=== PATIENT | female | born 1935 | race Caucasian/White ===

== ENCOUNTER → 2018-10-18 | Outpatient (REF) | payer MEDICARE, OTHER ==
[2018-10-18 21:14] LABS: PERCENT SATURATION 27.4 % (13.2-45.0)
== END ==
LOC: M LAB REF 17:08
PROVIDERS: ATTEND Internal Medicine Nephrology
DX: D50.9 Iron deficiency anemia, unspecified (principal)

== ENCOUNTER 2019-06-13 01:17 | Inpatient (IN) | payer MEDICARE, OTHER ==
[~2019-06-13] VITALS: Ht 154.9 cm; Wt 65.8 kg
[2019-06-13 03:05] VITALS: BP 142/83
[2019-06-13 04:00] VITALS: BP 145/80
--- NOTE | 2019-06-13 04:12 | HPEPDOC ---
[facility] Medical History & Physical Date of Admission Jun 13, 2019 Date of Service: Jun 13, 2019 Attending Physician: ILYA ANTONIO MD History and Physical TIME OF SERVICE: 405 AM CHIEF COMPLAINT: Abdominal pain HISTORY OF PRESENT ILLNESS: This is a 84 old female who initially presented to [facility] with complaints of mid-right lateral abdominal pain that began yesterday afternoon after she ate lunch. She was unable to rate the pain on a scale of 1-10, but reported that it was severe. Associated symptoms included nausea and vomiting. She denied having fevers, and denied having chills. He last bowel movement was on Wednesday. She last passed gas yesterday. At [place] WBC #1.7, hemoglobin 11.6, platelets 275, sodium 136, potassium 5.2, chloride 101, CO2 16, BUN 50, creatinine 1.7, glucose 189, lipase 81, and BNP 1236. The UA was unremarkable. The CT of the abdomen showed partial small bowel traction likely due to adhesions. She was started on IV fluids and an NG tube to suction was placed; she was transferred here for surgical evaluation. REVIEW OF SYSTEMS: 12 point review of systems negative except as listed in HPI PAST MEDICAL/ SURGICAL HISTORY: Chronic hypertension. Diverticulosis. CKD Hypothyroidism Status post hernia repair. Status post tubal ligation Status post surgery for brain aneurysm SOCIAL HISTORY: Nonsmoker FAMILY HISTORY: Family history of lung problems, diabetes, or CAD ALLERGIES: Please see below. HOME MEDICATIONS: Please see below. PHYSICAL EXAMINATION: VITAL SIGNS: Please see below. GENERAL APPEARANCE: Well-nourished, well-developed, not in apparent distress HEENT: Cephalic, atraumatic. Mucous members moist and pink. NG to suction and placed, bile colored fluid is draining from the 2 CARDIOVASCULAR: Regular rate and rhythm. No murmurs, rubs or gallops LUNGS: Clear to auscultation bilaterally on room air ABDOMEN: Bowel sounds hypoactive. Abdomen is still distended, soft and slightly tender with palpation INTEGUMENT: No generalized pallor NEUROLOGICAL: Cranial nerves II-12 are grossly intact. Speech is not dysarthric PSYCHIATRIC: Alert and oriented, able to understand and follow commands LABORATORY DATA: see HPI IMAGING: see HPI MICROBIOLOGY: UA is remarkable ASSESSMENT: Ms. Velez is an 84 year old female the past. No history of hypertension, CKD, and multiple abdominal surgeries, who will be admitted for management of partial small bowel obstruction. PLAN: 1.Partial small bowel obstruction Diagnosis based on complains of abdominal pain and CT scan findings Plan: Admit to general medical floor/continue with NG to intermittent suction w clamping to take meds/nothing by mouth except for sips of water and meds /IV fluids/follow-up serial abdominal sounds KUB/follow-up with Dr. Haynes 2. Chronic Hypertension. Plan: Continue home meds 3. Hypogonadism. Plan: Continue home meds 4 Depression? Plan: Continue home meds DVT prophylaxis with SCDs Disposition pending clinical course Home Medications Scheduled Calcitriol (Calcitriol) 0.25 Mcg Capsule, 0.25 MCG PO DAILY Diltiazem HCl (Cartia Xt) 120 Mg Cap.er.24h, 120 MG PO DAILY Ezetimibe (Ezetimibe) 10 Mg Tablet, 10 MG PO DAILY Ferrous Sulfate (Ferrous Sulfate) 325 Mg Tablet, 325 MG PO DAILY Folic Acid (Folic Acid) 1 Mg Tablet, 1 MG PO DAILY Gemfibrozil (Gemfibrozil) 600 Mg Tablet, 600 MG PO BID Levothyroxine Sodium (Synthroid) 50 Mcg Tablet, 50 MCG PO DAILY Losartan Potassium (Losartan Potassium) 25 Mg Tablet, 25 MG PO DAILY Melatonin (Melatonin) 5 Mg Tablet, 5 MG PO QHS Mirtazapine (Remeron) 15 Mg Tablet, 7.5 MG PO QHS Nystatin (Nystatin Powder) 15 Gm Powder, 1 DOSE TOP DAILY UNDER BREASTS AND STOMACH FOLDS Polyvinyl Alcohol (Akwa Tears) 15 Ml Drops, 2 DROP OU DAILY Potassium Chloride (Potassium Chloride) 10 Meq Capsule.er, 10 MEQ PO DAILY Sertraline HCl (Sertraline HCl) 50 Mg Tablet, 50 MG PO DAILY Vit A/Vit C/Vit E/Zinc/Copper (Icaps Areds Formula Dr Tablet) 1 Each Tablet.dr, 1 TAB PO DAILY Allergies Coded Allergies: acetaminophen (Verified Allergy, Intermediate, rash, 06/13/19) diphenhydramine (Verified Allergy, Intermediate, rash, 06/13/19) metronidazole (Verified Allergy, Intermediate, rash, 06/13/19) NSAIDS (Non-Steroidal Anti-Inflamma (Verified Allergy, Unknown, 06/13/19) Penicillins (Verified Allergy, Unknown, 06/13/19) erythromycin base (Verified Allergy, Unknown, 06/13/19) A-FIB/CHADSVASC A-FIB History Current/History of A-Fib/PAF?: No Current PO Anticoag Therapy: No ILYA ANTONIO MD Jun 13, 2019 04:12
[2019-06-13] MEDS: NS 1,000 ML IV SCH ×2 (04:15→05:00)
[2019-06-13] MEDS ORDERED: NYST1POW9 TOP (05:32)
[2019-06-13] MEDS ORDERED: MELA1TAB9 PO (05:32)
[2019-06-13] MEDS ORDERED: AKWASOL OU (05:32)
[2019-06-13] MEDS ORDERED: REME15TA PO (05:32)
[2019-06-13] MEDS ORDERED: FERR1TAB8 PO (05:32)
[2019-06-13] MEDS ORDERED: EZET10TA21 PO (05:32)
[2019-06-13] MEDS ORDERED: SERT-155 PO (05:32)
[2019-06-13] MEDS ORDERED: SYNT50TA PO (05:32)
[2019-06-13] MEDS ORDERED: CART120C PO (05:32)
[2019-06-13] MEDS ORDERED: LOSA25TA14 PO (05:32)
[2019-06-13] MEDS ORDERED: CALC1CAP31 PO (05:32)
[2019-06-13] MEDS ORDERED: ICAPTAB PO (05:32)
[2019-06-13] MEDS ORDERED: POTA10CA32 PO (05:32)
[2019-06-13] MEDS ORDERED: GEMF600T5 PO (05:32)
[2019-06-13] MEDS ORDERED: FOLI1TAB11 PO (05:32)
[2019-06-13] MEDS: LEVOTHYROXINE 50MCG TABLET (0.05MG) PO SCH (06:29)
[2019-06-13 07:04] LABS: HEMATOCRIT 32.4 % (36.0-47.0); HEMOGLOBIN 10.6 g/dl (12.0-15.5); MEAN CORPUSCULAR HEMOGLOBIN 30.7 pg (27.0-33.0); MEAN CORPUSCULAR HGB CONC 32.7 g/dl (32.0-36.5); MEAN CORPUSCULAR VOLUME 93.9 fl (80.0-96.0); PLATELET COUNT, AUTOMATED 230 10^3/uL (150-450); RED BLOOD COUNT 3.45 10^6/uL (4.00-5.40); WHITE BLOOD COUNT 6.9 10^3/uL (4.0-10.0)
[2019-06-13 07:15] LABS: CALCIUM LEVEL 7.8 MG/DL (8.8-10.2); CREATININE FOR GFR 1.76 MG/DL (0.55-1.30); GLOMERULAR FILTRATION RATE 29.1 (>32); POTASSIUM SERUM 5.1 MEQ/L (3.5-5.1)
--- NOTE | 2019-06-13 08:26 | REP ---
KUB: Single view. History: Follow up partial small bowel obstruction. No comparison imaging. Findings: A nasogastric tube is seen in the gastric fundus. The bowel gas pattern is unremarkable with air and stool in a nondistended colon. No large or small bowel dilation is seen. Psoas margins and flank stripes are intact. There is a mild levoconvex scoliotic curve of the lumbar spine. Impression: Unremarkable bowel gas pattern. Nasogastric tube in the upper stomach. Electronically Signed by Neville Sams MD 06/13/2019 08:17 A
[2019-06-13] MEDS: POTASSIUM CHLORIDE 10 MEQ SR TABLET PO SCH (09:00)
[2019-06-13] MEDS: NYSTATIN 100,000 UNITS/GM TOPICAL PWD 15 GM TOP SCH (09:00)
[2019-06-13] MEDS: EZETIMIBE 10 MG TAB (ZETIA) PO SCH (09:28)
[2019-06-13] MEDS: CALCITRIOL 0.25 MCG CAP (S0169) PO SCH (09:28)
[2019-06-13] MEDS: SERTRALINE HCL 50 MG TAB PO SCH (09:28)
[2019-06-13] MEDS: GEMFIBROZIL 600 MG TAB PO SCH ×2 (09:28→20:34)
[2019-06-13] MEDS: POLYVINYL ALCOHOL OPHTH SOLN 15 ML(LIQUITEARS) OU SCH (09:29)
[2019-06-13] MEDS: FOLIC ACID 1 MG TAB PO SCH (09:29)
[2019-06-13] MEDS: LOSARTAN 25 MG TAB PO SCH (09:29)
[2019-06-13] MEDS: LR 1,000 ML IV SCH (10:37)
[2019-06-13 14:00] VITALS: BP 146/73
--- NOTE | 2019-06-13 19:40 | IPNPDOC ---
Date Seen The patient was seen on 06/13/19. Progress Note SUBJECTIVE: Cristy was seen and examined this morning while lying upright in bed. She states that she is feeling "pretty good" this morning. Her left nose is a little bit sore and this is the nose with the NG tube. Her belly pain is all but resolved at this time. She has not had any bowel movement since admission. She denies any nausea or vomiting. There is approximately 550 mL of dark green fluid that has been suctioned via the NG tube. She remains npo and reports she was able to get some sleep overnight. She denies feeling feverish, chills, night sweats, headache, lightheadedness, dizziness, dry mouth, chest pain, chest pressure, palpitations, shortness of breath, cough, paresthesias, or lower extremity swelling. OBJECTIVE PHYSICAL EXAMINATION: VITAL SIGNS: Please see below. GENERAL: Cristy is an elderly appearing woman. She is awake, alert and oriented 3. She responds to questions and commands appropriately. Her baseline demeanor seems somewhat subdued today, but this is hospitalist day team's initial evaluation of her son. This may be her baseline. She does not appear to be in any acute distress at this time. HEENT: Normocephalic, atraumatic. Anicteric sclera. Noninjected conjunctiva. No palpable cervical or supraclavicular lymphadenopathy. Trachea is midline. Neck is supple. Nasogastric tube in place through left nares. CARDIOVASCULAR: Regular rate, regular rhythm, S1, S2 normal. No murmurs, rubs, or gallops appreciated. No visible JVD. 2+ radial and posterior tibial pulses palpated bilaterally RESPIRATORY: Mildly diminished tidal volume. No wheezes or rhonchi appreciated on auscultation. Symmetric chest expansion. No retractions or accessory muscle v isualized on respiration. No cough elicited during exam. ABDOMINAL: Vertical midline abdominal scar superior to umbilicus. Right lower quadrant tenderness to palpation. Hypoactive bowel sounds. Left lower quadrant fullness to palpation. No dullness to percussion throughout abdomen. No hepatomegaly appreciated on palpation. MUSCULOSKELETAL: 5 out of 5 muscle strength testing upper extremity and lower extremity bilaterally. EXTREMITIES: No clubbing or cyanosis. No lower extremity edema. NEUROLOGICAL: Sensation to light touch intact upper extremity and lower showing bilaterally. Patient is awake, alert and oriented 3. She responds appropriate to questions commands. PSYCHOLOGICAL: Subdued mood, appropriate affect. LABORATORY DATA, IMAGING STUDIES, MICROBIOLOGY: Please see below. Abdominal flat plate KUB, 06/13- showed an unremarkable bowel gas pattern with air and stool in the nondistended colon. No large or small bowel dilation is seen. Nasogastric tube in the upper stomach. ASSESSMENT & PLAN: This is an 84-year-old female who presented to the [facility] yesterday from [facility] with a chief complaint of right-sided abdominal pain that was "severe." Pain came on the afternoon of 06/11 after patient ate lunch. She had associated nausea and dry heaves with no fever or c hills. Her last bowel movement was 06/09. The last time she had flatus was 06/12. CT imaging showed a partial small bowel obstruction likely secondary to adhesions from previous abdominal surgical procedures. Patient was started on IV fluids, given NG tube suction for decompression and follow-up serial KUB imaging was ordered. General surgery was contacted and will be evaluating patient. #Partial small bowel obstruction on CT imaging -SBO likely secondary to adhesions from previous abdominal surgeries. -KUB flat plate imaging this morning showed unremarkable bowel gas pattern with stool and air in a nondistended colon. There was no bowel dilation visualized. -Patient is also being followed by general surgery who is aware updates and patient's current status. -NG tube drained 550 mL's of dark green fluid through this morning. -Patient reports her bowel pain is all but resolved from yesterday. -Patient's IV fluid was switched from normal saline to LR's due to hyperchloremia. #Hyperchloremia -Chloride value this morning was 113 -IV fluid had been normal saline, but this was switched to lactated Ringer's. Due to elevated chloride level -Continue to monitor on repeat metabolic profiles #Chronic kidney disease, stage IIIB -Patient's IV fluids switched from normal saline to lactated Ringer's today due to hyperchloremia. -Patient remains npo -GFR measured at 29% this morning -Creatinine was 1.76 this morning. Unsure of patient's baseline creatinine as this was only lifetime Cr level found in medical record. -Continue to monitor and repeat labs. #Essential hypertension -Continue with patient's home losartan and diltiazem -Continue to monitor vitals #Normocytic anemia -Hemoglobin was 10.6 with MCV of 93.9. -Possibly secondary to chronic kidney disease/anemia of chronic disease. -Continue with patient's home folic acid dosing -Continue to monitor and repeat CBC measurements #History of hypothyroidism -Continue with patient's levothyroxine #History of hyperlipidemia Continue with home ezetimibe and gemfibrozil medication #History of depression/anxiety -Continue with patient's home mirtazapine and sertraline medication #History of diverticulosis #History of multiple abdominal surgeries #History of surgery for brain aneurysm DVT prophylaxis: TEDs and sequentials ordered. DISPOSITION: Patient's partial small bowel obstruction appears to be improved on morning KUB imaging. NG tube is still suctioning all fluid. Hospitalist team is working in conjunction with general surgery, who is aware patient and current developments in her status. We will reassess patient status tomorrow as to resolution of sbo. I saw and evaluated the patient. I agree with the findings and plan of care as documented in the above note VS, I&O, 24H, Fishbone Vital Signs/I&O Vital Signs Date Time Temp Pulse Resp B/P (MAP) Pulse Ox O2 Delivery O2 Flow Rate FiO2 06/13/19 14:00 99.2 66 16 146/73 (97) 96 I&O- Last 24 Hours up to 6 AM 06/13/19 06:00 Intake Total 0 ml Output Total 450 ml Balance -450 ml Laboratory Data 24H LABS Laboratory Tests 2 06/13/19 06:28: Nucleated Red Blood Cells % (auto) 0.0, Anion Gap 10, Glomerular Filtration Rate 29.1L, Blood Urea Nitrogen 46H, Creatinine 1.76H, Sodium Level 136, Potassium Level 5.1, Chloride Level 113H, Carbon Dioxide Level 13L, Calcium Level 7.8L CBC/BMP Laboratory Tests 06/13/19 06:28 Red Blood Count 3.45 L, Mean Corpuscular Volume 93.9, Mean Corpuscular Hemoglobin 30.7, Mean Corpuscular Hemoglobin Concent 32.7, Red Cell Distribution Width 13.1, Calcium Level 7.8 L [facility] PGY-1 Jun 13, 2019 19:40 ELIZABETH CABA MD Jun 15, 2019 10:52
[2019-06-13 20:34] VITALS: BP 189/95
[2019-06-13] MEDS: MIRTAZAPINE 7.5MG PER 1/2 TABLET PO SCH (20:34)
--- NOTE | 2019-06-13 23:31 | CR ---
DATE OF CONSULTATION: 06/13/2019 REASON FOR CONSULTATION: Possible bowel obstruction. HISTORY OF PRESENT ILLNESS: The patient is a pleasant 84-year-old woman who was admitted early on the morning of 06/13/2019 on transfer from [facility] with some complaints of abdominal pain. The patient had reported that following lunch on 06/12/2019, she developed some discomfort in the mid and lower abdomen. This was not particularly well localized. The discomfort rapidly became quite severe. She had some nausea and some vomiting as well. She denied any diarrhea, but had reported a tendency toward constipation recently. She had no fevers or chills. She presented at [facility] for evaluation. She had some laboratory studies obtained and a CT scan was done, which apparently was interpreted as showing a partial small bowel obstruction. Reportedly, [facility] had no available beds, and she was transferred to [facility] for treatment. A nasogastric tube was placed, and she has been kept on hydration. I am now asked to evaluate the patient regarding her possible bowel obstruction. ALLERGIES: Allergies are reported to ACETAMINOPHEN, DIPHENHYDRAMINE, METRONIDAZOLE, NONSTEROIDAL ANTI-INFLAMMATORY MEDICATIONS, PENICILLIN and ERYTHROMYCIN. HOME MEDICATIONS: Home medications are listed as calcitriol, diltiazem, ezetimide, ferrous sulfate, folic acid, gemfibrizil, levothyroxine, losartan, melatonin, mirtazapine, Nystatin topically, artificial tears, potassium chloride, sertraline and vitamin capsules. SURGICAL HISTORY: Significant for a tubal ligation and repair of a hernia. She has an upper midline abdominal scar, but is unsure what sort of surgery she had done there. MEDICAL HISTORY: Significant for hypertension. She has a history of chronic kidney disease. She has hypothyroidism. She has a history of diverticulosis. SOCIAL HISTORY: Patient is a nonsmoker. FAMILY HISTORY: Not particularly helpful in this patient. REVIEW OF SYSTEMS: Revealed no reported chest pain, shortness of breath, melena, hematochezia, hepatitis, pancreatitis or yellow jaundice. She has had no history of deep vein thrombosis (DVT) or pulmonary embolus. PHYSICAL EXAMINATION: The patient appears alert and seems oriented globally. She is cooperative with the exam. Skin: Is warm and dry. Sclerae are anicteric. Neck is without bruit. Heart: Exam shows a regular rhythm. The lungs are clear. The abdomen is mildly protuberant. She has a long upper midline scar from the umbilicus superiorly. She has bowel sounds present on auscultation of the abdomen. There is no tympany to percussion. There is some tenderness to palpation with some fullness across the lower abdomen, perhaps more so on the left than the right. She has no rebound or guarding. Extremities are without any significant edema. Laboratory studies this morning included a white count of 7, hemoglobin of 11, hematocrit of 32 and a platelet count of 230,000. Chemistry profile showed a sodium of 136, potassium 5.1, chloride 113, CO2 of 13, BUN of 46, creatinine 1.8, and a glucose of 127. She had a KUB this morning that showed an unremarkable bowel gas pattern with a nasogastric tube in the stomach. IMPRESSION: The patient reportedly had a CT scan at [facility] interpreted as showing a partial small bowel obstruction. This morning she reports that she has not had any flatus or bowel movements. She has some mild tenderness across the lower abdomen. She is clinically stable. With her persistent tenderness and lack of flatus, it seems reasonable to suggest that she has a persistent obstruction. PLAN: The patient was counseled that it is still quite likely that her obstruction would resolve. She will be continued on IV fluid. Her nasogastric (NG) tube will be continued for now. SAMEER
[2019-06-14 06:17] VITALS: BP 197/102
[2019-06-14] MEDS: LEVOTHYROXINE 50MCG TABLET (0.05MG) PO SCH (06:21)
[2019-06-14] MEDS: FOLIC ACID 1 MG TAB PO SCH (08:00)
[2019-06-14] MEDS: CALCITRIOL 0.25 MCG CAP (S0169) PO SCH (08:00)
[2019-06-14] MEDS: POTASSIUM CHLORIDE 10 MEQ SR TABLET PO SCH (08:00)
[2019-06-14 08:02] VITALS: BP 188/88
[2019-06-14] MEDS: EZETIMIBE 10 MG TAB (ZETIA) PO SCH (08:03)
[2019-06-14] MEDS: GEMFIBROZIL 600 MG TAB PO SCH ×2 (08:03→20:02)
[2019-06-14] MEDS: LOSARTAN 25 MG TAB PO SCH (08:03)
[2019-06-14] MEDS: SERTRALINE HCL 50 MG TAB PO SCH (08:03)
[2019-06-14] MEDS: POLYVINYL ALCOHOL OPHTH SOLN 15 ML(LIQUITEARS) OU SCH (08:04)
[2019-06-14] MEDS: LR 1,000 ML IV SCH ×2 (08:04→20:03)
[2019-06-14] MEDS: NYSTATIN 100,000 UNITS/GM TOPICAL PWD 15 GM TOP SCH (08:05)
[2019-06-14 08:34] LABS: HEMATOCRIT 31.1 % (36.0-47.0); HEMOGLOBIN 10.4 g/dl (12.0-15.5); MEAN CORPUSCULAR HEMOGLOBIN 31.7 pg (27.0-33.0); MEAN CORPUSCULAR HGB CONC 33.4 g/dl (32.0-36.5); MEAN CORPUSCULAR VOLUME 94.8 fl (80.0-96.0); PLATELET COUNT, AUTOMATED 198 10^3/uL (150-450); RED BLOOD COUNT 3.28 10^6/uL (4.00-5.40); WHITE BLOOD COUNT 4.6 10^3/uL (4.0-10.0)
[2019-06-14 08:45] LABS: INR 1.15; PROTHROMBIN TIME 14.4 SECONDS (11.8-14.0)
[2019-06-14 09:00] LABS: ALBUMIN 3.1 GM/DL (3.2-5.2); BILIRUBIN,TOTAL 0.4 MG/DL (0.2-1.0); CALCIUM LEVEL 8.2 MG/DL (8.8-10.2); CREATININE FOR GFR 1.48 MG/DL (0.55-1.30); GLOMERULAR FILTRATION RATE 35.6 (>32); POTASSIUM SERUM 4.3 MEQ/L (3.5-5.1); TOTAL PROTEIN 6.7 GM/DL (6.4-8.2)
[2019-06-14 09:10] VITALS: BP 182/85
[2019-06-14 12:42] VITALS: BP 150/80
[2019-06-14 14:58] VITALS: BP 181/85
--- NOTE | 2019-06-14 17:31 | IPNPDOC ---
Date Seen The patient was seen on 06/14/19. Progress Note SUBJECTIVE: Cristy was seen and examined this morning while lying in bed. She remains npo. Her NG tube remains in place through the left nare and approximate 200 mL's of dark blue/green fluid have been suctioned off. She has not had a bowel movement yet, nor has she had any flatus. She states she is doing okay and does not feel as though she is in any pain. She denies fever, chills, night sweats, chest pain, chest pressure, palpitations, shortness of breath, cough, feeling nauseated, vomiting, lower extremity edema, or paresthesias at this time. OBJECTIVE PHYSICAL EXAMINATION: VITAL SIGNS: Please see below. GENERAL: Cristy is an elderly appearing woman. She is awake, alert and oriented 3. She responds to questions and commands appropriately. Her demeanor appears more engaged today versus yesterday. She does not appear to be in any acute distress at this time. HEENT: Normocephalic, atraumatic. Anicteric sclera. Noninjected conjunctiva. No palpable cervical or supraclavicular lymphadenopathy. Trachea is midline. Neck is supple. Nasogastric tube in place through left nare. CARDIOVASCULAR: 2/6 systolic murmur auscultated along the left parasternal border. Regular rate and rhythm. No rubs or gallops appreciated. No visible JVD. 2+ radial and posterior tibial pulses palpated bilaterally RESPIRATORY: Mildly diminished tidal volume. No wheezes or rhonchi appreciated on auscultation. Symmetric chest expansion. No retractions or accessory muscle visualized on respiration. No cough elicited during exam. ABDOMINAL: Vertical midline abdominal scar superior to umbilicus. Right lower quadrant tenderness to palpation that is similar to yesterday. Normoactive bowel sounds. Left lower quadrant fullness to palpation. No tympany to percussion throughout abdomen. No hepatomegaly appreciated on palpation. MUSCULOSKELETAL: 5 out of 5 muscle strength testing upper extremity and lower extremity bilaterally. BACK: There appear to be 2 areas of raised skin over the patient's left back. The first is located along the medial border of the scapula, with the second over the lower costovertebral angles. Both appear approximately 4-5 cm in width. They seem to be lipoma-appearing. On inspection. There is no erythema, tenderness to palpation, or induration, and they aren't fluctuant. EXTREMITIES: No clubbing or cyanosis. No lower extremity edema. NEUROLOGICAL: Sensation to light touch intact upper extremity and lower showing bilaterally. Patient is awake, alert and oriented 3. She responds appropriate to questions commands. PSYCHOLOGICAL: Subdued mood, appropriate affect. LABORATORY DATA, IMAGING STUDIES, MICROBIOLOGY: Please see below. ASSESSMENT AND PLAN: This is an 84-year-old female who presented to the [facility] ED on 06/[address] [facility] with a chief complaint of right-sided abdominal pain that was "severe." Pain came on the afternoon of 06/11 after patient ate lunch. She had associated nausea and dry heaves with no fever or chills. Her last bowel movement was 06/09. The last time she had flatus was 06/12. CT imaging showed a partial small bowel obstruction likely secondary to adhesions from previous abdominal surgical procedures. Patient was started on IV fluids, given NG tube suction for decompression and follow-up serial KUB imaging was ordered. General surgery was contacted and is following patient. KUB from 06/13 showed unremarkable bowel gas pattern with no distention of small or large bowel. There were normal air and stool levels visualized within the intestines. Patient continues to have right upper quadrant abdominal pain on palpation. #Partial small bowel obstruction on CT imaging -SBO likely secondary to adhesions from previous abdominal surgeries. -KUB flat plate imaging yesterday showed unremarkable bowel gas pattern with stool and air in a nondistended colon. There was no bowel dilation visualized. -Patient is also being followed by general surgery who is aware of updates and patient's current status. Per surgery note on 06/13, NG tube will remain in place and patient will remain npo for now as she continues to have right upper quadrant abdominal pain. -NG tube had drained approximately 200 mL of dark blue/green fluid this morning. -Patient's IV fluid was switched from normal saline to LR's due to hyperchlorem ia. #Hyperchloremia -Chloride value this morning was mildly elevated at 115. This is slightly eleva maria antonia from yesterday. -IV fluid had been normal saline, but this was switched to lactated Ringer's yes terday due to elevated chloride level -Continue to monitor on repeat metabolic profiles #Chronic kidney disease, stage IIIB -Patient's IV fluids switched from normal saline to lactated Ringer's today due to hyperchloremia. -Patient remains npo -GFR measured at 35% this morning. -Creatinine remains elevated but improved from yesterday. Unsure of patient's baseline creatinine as this is her only recorded visit in the medical record system. -Continue to monitor and repeat labs. #Essential hypertension -Continue with patient's home losartan and diltiazem -Patient's blood pressure was elevated at 192 systolic earlier this morning before she had received her daily Losartan. It subsequently came down towards the midday 150 systolic. -Continue to monitor vitals and assess if further treatment is warranted. #Normocytic anemia -Hemoglobin remained slightly diminished at 10.4 this morning. MCV was -Possibly secondary to chronic kidney disease/anemia of chronic disease. -Continue with patient's home folic acid dosing -Continue to monitor and repeat CBC measurements #Elevated alkaline phosphatase -This is mildly elevated. This morning at 124. Patient continues to be npo and IV fluids. She has a history of multiple abdominal surgeries in the past with likely adhesions leading to recurrent partial small bowel obstruction. -Continue to follow and repeat labs. #Hypocalcemia -Very mildly depressed this morning at 8.2 and improved from yesterday when it was 7.4. -Continue with home calcitriol -Continue to monitor on subsequent labs. #History of hypothyroidism -Continue with patient's levothyroxine #History of hyperlipidemia Continue with home ezetimibe and gemfibrozil medication #History of depression/anxiety -Continue with patient's home mirtazapine and sertraline medication #History of diverticulosis #History of multiple abdominal surgeries #History of surgery for brain aneurysm DVT prophylaxis: TEDs and sequentials ordered. DISPOSITION: Hospitalist team continues to be in collaboration with general surgery. Patient has continued right upper quadrant abdominal pain and therefore we are continuing to assess her status while keeping her npo with NG tube in place. I saw and evaluated the patient. I agree with the findings and plan of care as d ocumented in the above note VS, I&O, 24H, Fishbone Vital Signs/I&O Vital Signs Date Time Temp Pulse Resp B/P (MAP) Pulse Ox O2 Delivery O2 Flow Rate FiO2 06/14/19 14:58 99.0 66 20 181/85 (117) 95 I&O- Last 24 Hours up to 6 AM 06/14/19 06:00 Intake Total 170 ml Output Total 1675 ml Balance -1505 ml Laboratory Data 24H LABS Laboratory Tests 2 06/14/19 08:22: Nucleated Red Blood Cells % (auto) 0.0, Prothrombin Time 14.4H, Prothromb Time International Ratio 1.15, Anion Gap 9, Glomerular Filtration Rate 35.6, Blood Urea Nitrogen 31H, Creatinine 1.48H, Sodium Level 143#, Potassium Level 4.3, Chloride Level 115H, Carbon Dioxide Level 19L, Calcium Level 8.2L, Aspartate Amino Transf (AST/SGOT) 18, Alanine Aminotransferase (ALT/SGPT) 10L, Alkaline Phosphatase 124H, Total Bilirubin 0.4, Total Protein 6.7, Albumin 3.1L, Albumi n/Globulin Ratio 0.86L CBC/BMP Laboratory Tests 06/14/19 08:22 Red Blood Count 3.28 L, Mean Corpuscular Volume 94.8, Mean Corpuscular Hemoglobin 31.7, Mean Corpuscular Hemoglobin Concent 33.4, Red Cell Distribution Width 13.0, Calcium Level 8.2 L, Aspartate Amino Transf (AST/SGOT) 18, Alanine Aminotransferase (ALT/SGPT) 10 L, Alkaline Phosphatase 124 H, Total Bilirubin 0.4, Total Protein 6.7, Albumin 3.1 L [facility] PGY-1 Jun 14, 2019 17:31 ELIZABETH CABA MD Jun 15, 2019 10:58
[2019-06-14] MEDS: MIRTAZAPINE 7.5MG PER 1/2 TABLET PO SCH (20:02)
--- NOTE | 2019-06-14 20:06 | IPN ---
DATE: 06/14/2019 HISTORY The patient was admitted by the hospitalist on June 13 in the [facility] with a history of some abdominal pain and a possible partial small-bowel obstruction. She has an NG tube in place and has been continued on some IV fluid. I was asked to see her regarding management. Vital signs today show that she has been afebrile since admission. Her pulses in the 60s and 70s. Her blood pressure has been quite high during the day today. Intake and output show that she has had an excellent urine output. She has very little recorded for IV intake so this may be a discrepancy in the record keeping. Her NG output is recorded as 375 mL today. PHYSICAL EXAMINATION The patient is lying quietly on the hospital bed. She roused readily to voice when I entered the room. She does not appear to be in significant discomfort. Skin: Is warm and dry. Heart exam shows a regular rate and rhythm and she is not tachycardiac. The abdomen is flat. She has some bowel sounds present. The abdomen is soft. She has some mild tenderness across the lower abdomen, particularly in the left lower quadrant. There is no evident hernia. NG tube has some light green tinted fluid within the tubing and container. Laboratory studies include a CBC showing a white count of 5, hemoglobin 10, hematocrit 31 and a platelet count of 198,000. Chemistry profile shows a sodium of 143, potassium 4.3, chloride 115, CO2 of 19, BUN of 31, creatinine 1.5 and a glucose of 87. She has no new imaging today. IMPRESSION The patient continues to have some mild abdominal tenderness. Her NG output seems to be diminished. PLAN I will obtain a repeat KUB in the morning and continue to monitor her NG output. If her output remains low and her KUB is unremarkable, then we may wish to consider clamping the NG tube and starting her on some clear liquids. KAROLYND
[2019-06-14 21:15] VITALS: BP 181/86
[2019-06-15 06:00] VITALS: BP 183/85
[2019-06-15] MEDS: LEVOTHYROXINE 50MCG TABLET (0.05MG) PO SCH (06:03)
[2019-06-15] MEDS: LR 1,000 ML IV SCH ×2 (06:03→21:32)
[2019-06-15 06:41] LABS: HEMATOCRIT 30.1 % (36.0-47.0); HEMOGLOBIN 10.2 g/dl (12.0-15.5); MEAN CORPUSCULAR HEMOGLOBIN 31.2 pg (27.0-33.0); MEAN CORPUSCULAR HGB CONC 33.9 g/dl (32.0-36.5); PLATELET COUNT, AUTOMATED 203 10^3/uL (150-450); RED BLOOD COUNT 3.27 10^6/uL (4.00-5.40); WHITE BLOOD COUNT 4.5 10^3/uL (4.0-10.0)
[2019-06-15 07:10] LABS: CALCIUM LEVEL 8.6 MG/DL (8.8-10.2); CREATININE FOR GFR 1.31 MG/DL (0.55-1.30); POTASSIUM SERUM 4.1 MEQ/L (3.5-5.1)
--- NOTE | 2019-06-15 08:45 | REP ---
KUB: Single view. History: Followup small bowel obstruction. Comparison study: June 13, 2019. Findings: A nasogastric tube is again seen in the gastric fundus. The bowel gas pattern is normal today. No large or small bowel dilation is observed. Flank stripes and psoas margins are intact. There is a levoconvex scoliotic curve of the lumbar spine. Vascular calcification is noted. Impression: Normal bowel gas pattern. Electronically Signed by Neville Sams MD 06/15/2019 09:29 A
[2019-06-15] MEDS: NYSTATIN 100,000 UNITS/GM TOPICAL PWD 15 GM TOP SCH ×2 (09:00→09:32)
[2019-06-15 09:30] VITALS: BP 170/90
[2019-06-15] MEDS: GEMFIBROZIL 600 MG TAB PO SCH ×2 (09:30→21:32)
[2019-06-15] MEDS: EZETIMIBE 10 MG TAB (ZETIA) PO SCH (09:30)
[2019-06-15] MEDS: POTASSIUM CHLORIDE 10 MEQ SR TABLET PO SCH (09:30)
[2019-06-15] MEDS: SERTRALINE HCL 50 MG TAB PO SCH (09:31)
[2019-06-15] MEDS: CALCITRIOL 0.25 MCG CAP (S0169) PO SCH (09:31)
[2019-06-15] MEDS: POLYVINYL ALCOHOL OPHTH SOLN 15 ML(LIQUITEARS) OU SCH (09:31)
[2019-06-15] MEDS: FOLIC ACID 1 MG TAB PO SCH (09:31)
[2019-06-15] MEDS: LOSARTAN 25 MG TAB PO SCH (09:35)
[2019-06-15 14:03] VITALS: BP 187/92
--- NOTE | 2019-06-15 15:40 | IPN ---
DATE: 06/15/2019 HISTORY: The patient was transferred from [facility] on June 13 with some lower abdominal discomfort and a CT scan consistent with a small bowel obstruction. Yesterday she had little discomfort and had little out of her NG tube. This morning she reports that she has been having some flatus. She denies any abdominal pain. Vital signs show that she has been afebrile over the past 24 hours. Her pulse is in the 60s and her blood pressure remains somewhat elevated in the 170-187 systolic range. Intake and output shows that yesterday she had 700 recorded in with 1225 recorded out only 375 of which was NG drainage. PHYSICAL EXAMINATION: The patient is sitting up in a chair at the bedside. Her NG tube is clamped. She is alert and oriented. Heart exam shows a regular rhythm. The abdomen is mildly full but not distended. She has bowel sounds present. The abdomen is soft without any apparent tenderness on palpation. Laboratory studies reveal a white count of four with a hemoglobin of 10, hematocrit 30 and platelet count of 203,000. Chemistry profile shows sodium of 142, potassium 4.1, chloride 113, CO2 of 18, BUN of 33, creatinine 1.3 and a glucose of 73. KUB this morning showed a normal bowel gas pattern. IMPRESSION Today the patient reports passage of some flatus with no abdominal pain and her abdomen is soft and nontender. X-ray is not suggestive of a bowel obstruction. The patient appears to be resolving her small bowel obstruction. PLAN: I did review her CT scan finally and this did seem consistent with a distal small bowel obstruction. Today she appears improved with no apparent tenderness on exam and no pain. Her NG tube was clamped earlier and she was started on some clear liquids which she appears to be tolerating well so far. I would recommend continuing this at least until tomorrow morning and if she has tolerated the clear liquids then the NG tube can be removed and her diet advanced. SAMEER
--- NOTE | 2019-06-15 17:11 | IPNPDOC ---
Date Seen The patient was seen on 06/15/19. Progress Note SUBJECTIVE: Cristy was seen and examined today while lying in bed. She denies being in any pain other than the associated left nostril discomfort from her NG tube. She continues to be on NG tube suction and there is roughly 100 mL of dark brown colored fluid currently visible in the collecting jar. She has yet to have a bowel movement since admission but endorses some flatus. She underwent KUB x-ray imaging this morning. She denies fever, chills, chest pain, chest pressure, palpitations, shortness of breath, cough, abdominal pain, feeling nauseated, or vomiting at this time. OBJECTIVE PHYSICAL EXAMINATION: VITAL SIGNS: Please see below. GENERAL: Cristy is an elderly appearing woman. She is awake, alert and oriented 3. She responds to questions and commands appropriately. Her demeanor appears more engaged today versus yesterday. She does not appear to be in any acute distress at this time. HEENT: Normocephalic, atraumatic. Anicteric sclera. Noninjected conjunctiva. No palpable cervical or supraclavicular lymphadenopathy. Trachea is midline. Neck is supple. Nasogastric tube is in place through left nare. CARDIOVASCULAR: 2/6 systolic murmur most prominent over the left parasternal border. Regular rate and rhythm. No rubs or gallops appreciated. No visible JVD. 2+ radial and posterior tibial pulses palpated bilaterally RESPIRATORY: Mildly diminished tidal volume. No wheezes or rhonchi appreciated on auscultation. Symmetric chest expansion. No retractions or accessory muscle visualized on respiration. No cough elicited during exam. ABDOMINAL: Vertical midline abdominal scar superior to umbilicus. There is no tenderness to palpation in all abdominal quadrants. Normoactive bowel sounds. Left lower quadrant fullness to palpation. His somewhat diminished from previous days. No tympany to percussion throughout abdomen. No hepatomegaly appreciated on palpation. MUSCULOSKELETAL: 5 out of 5 muscle strength testing upper extremity and lower extremity bilaterally. BACK: There appear to be 2 areas of raised skin over the patient's left back. The first is located along the medial border of the scapula, with the second over the lower costovertebral angles. Both appear approximately 4-5 cm in width. They seem to be lipoma-appearing. On inspection, they are fluctuant and there is no erythema, tenderness to palpation, or induration. EXTREMITIES: No clubbing or cyanosis. No lower extremity edema. NEUROLOGICAL: Sensation to light touch intact upper extremity and lower showing bilaterally. Patient is awake, alert and oriented 3. She responds appropriate to questions commands. PSYCHOLOGICAL: Subdued mood, appropriate affect. LABORATORY DATA, IMAGING STUDIES, MICROBIOLOGY: Please see below. Abdominal flat plate KUB, 06/15- A nasogastric tube is again seen in the gastric fundus. The bowel gas pattern is normal today. No large or small bowel dilation is observed. Flank stripes and psoas margins are intact. There is a levoconvex scoliotic curve of the lumbar spine. Vascular calcification is noted. ASSESSMENT AND PLAN: This is an 84-year-old female who presented to the [facility] ED on 06/[address] [facility] with a chief complaint of right-sided abdominal pain that was "severe." Pain came on the afternoon of 06/11 after patient ate lunch. She had associated nausea and dry heaves with no fever or chills. Her last bowel movement was 06/09. The last time she had flatus was 06/12. CT imaging showed a partial small bowel obstruction likely secondary to adhesions from previous abdominal surgical procedures. Patient was started on IV fluids, given NG tube suction for decompression and follow-up serial KUB imaging was ordered. General surgery was contacted and is following patient. KUB from 06/13 showed unremarkable bowel gas pattern with no distention of small or large bowel. There were normal air and stool levels visualized within the intestines. Patient continued to have right upper abdominal pain until 06/15, when she said it had all but resolved. Repeat KUB imaging on 06/15 showed a normal gas pattern with no small or large bowel dilation. Patient's NG tube was clamped and she was started on a clear liquid diet. She has yet to have a bowel movement since being admitted. #Partial small bowel obstruction on CT imaging -SBO likely secondary to adhesions from previous abdominal surgeries. Original CT imaging was performed at [facility]. -KUB flat plate imaging this morning had normal gas pattern with no dilation of small or large bowel. There was no significant interval change from KUB on 06/13. -Patient reports her abdominal pain has resolved. NG tube was clamped early this afternoon and patient was started on a clear liquid diet. -Patient is also being followed by general surgery and we greatly appreciate their consult. -Hospitalist team spoke with general surgery today and decision was made to clamp patient's NG tube and begin a clear liquid diet. If patient tolerates CLD through at least tomorrow morning, the NG tube may possibly be removed and her diet advanced. #Hyperchloremia -Chloride value this morning was mildly elevated at 113. This is slightly diminished from yesterday. -Patient was switched to LR's due to elevated chloride. LR's today were decreased to 50 miles per hour to potentially help with patient's elevated blood pressure. -Continue to monitor on repeat metabolic profiles #Chronic kidney disease, stage IIIB -LR fluids were switched to a rate of 50 mL's per hour today to hopefully help with patient's elevated blood pressure -Patient remains npo -GFR measured improved to 41% this morning. -Creatinine remains elevated but has improved over the last few days. Unsure of patient's baseline creatinine as this is her only recorded visit in the medical record system. -Continue to monitor and repeat labs. #Essential hypertension -Continue with patient's home losartan and diltiazem -Patient's blood pressure came down to 170 systolic at time of morning losartan and diltiazem administration. -Patient is been asymptomatic, with no headaches or pain. We will continue to monitor vitals and assess if further treatment is warranted beyond current antihypertensive regimen. #Normocytic anemia -Hemoglobin remained slightly diminished to 10.2 this morning. MCV was 92. -Possibly secondary to chronic kidney disease/anemia of chronic disease. -Continue with patient's home folic acid dosing -Continue to monitor and repeat CBC measurements #Elevated alkaline phosphatase -This was mildly elevated yesterday at 124. Patient continues to be npo with IV fluids. She has a history of multiple abdominal surgeries in the past with likely adhesions leading to recurrent partial small bowel obstruction. -Continue to follow and repeat labs. #Hypocalcemia -Very mildly depressed this morning at 8.6 and has improved the last few days. -Continue with home calcitriol -Continue to monitor on subsequent labs. #History of hypothyroidism -Continue with patient's levothyroxine #History of hyperlipidemia Continue with home ezetimibe and gemfibrozil medication #History of depression/anxiety -Continue with patient's home mirtazapine and sertraline medication #History of diverticulosis #History of multiple abdominal surgeries #History of surgery for brain aneurysm DVT prophylaxis: TEDs and sequentials ordered. DISPOSITION: Patient was switched to clear liquid diet and her NG tube was c lamped today. We will see how she tolerates diet and assess tomorrow if NG tube can re-removed and if her diet can be increased. We will continue to work with general surgery to collaborate on pt's care. I saw and evaluated the patient. I agree with the findings and plan of care as documented in the above note VS, I&O, 24H, Fishbone Vital Signs/I&O Vital Signs Date Time Temp Pulse Resp B/P (MAP) Pulse Ox O2 Delivery O2 Flow Rate FiO2 06/15/19 14:03 98.5 71 16 187/92 (123) 99 I&O- Last 24 Hours up to 6 AM 06/15/19 06:00 Intake Total 700 ml Output Total 1425 ml Balance -725 ml Laboratory Data 24H LABS Laboratory Tests 2 06/15/19 06:28: Nucleated Red Blood Cells % (auto) 0.0, Anion Gap 11, Glomerular Filtration Rate 41.0, Blood Urea Nitrogen 33H, Creatinine 1.31H, Sodium Level 142, Potassium Level 4.1, Chloride Level 113H, Carbon Dioxide Level 18L, Calcium Level 8.6L CBC/BMP Laboratory Tests 06/15/19 06:28 Red Blood Count 3.27 L, Mean Corpuscular Volume 92.0, Mean Corpuscular Hemoglobin 31.2, Mean Corpuscular Hemoglobin Concent 33.9, Red Cell Distribution Width 12.5, Calcium Level 8.6 L [facility] PGY-1 Jun 15, 2019 17:11 ELIZABETH CABA MD Jun 18, 2019 11:31
[2019-06-15 20:41] VITALS: BP 176/100
[2019-06-15] MEDS: MIRTAZAPINE 7.5MG PER 1/2 TABLET PO SCH (21:32)
[2019-06-16] MEDS: LEVOTHYROXINE 50MCG TABLET (0.05MG) PO SCH (05:20)
[2019-06-16 06:02] LABS: HEMATOCRIT 29.1 % (36.0-47.0); HEMOGLOBIN 10.1 g/dl (12.0-15.5); MEAN CORPUSCULAR HEMOGLOBIN 31.4 pg (27.0-33.0); MEAN CORPUSCULAR HGB CONC 34.7 g/dl (32.0-36.5); MEAN CORPUSCULAR VOLUME 90.4 fl (80.0-96.0); PLATELET COUNT, AUTOMATED 204 10^3/uL (150-450); RED BLOOD COUNT 3.22 10^6/uL (4.00-5.40); WHITE BLOOD COUNT 4.4 10^3/uL (4.0-10.0)
[2019-06-16 06:27] VITALS: BP 178/99
[2019-06-16 06:32] LABS: CALCIUM LEVEL 8.5 MG/DL (8.8-10.2); CREATININE FOR GFR 1.32 MG/DL (0.55-1.30); GLOMERULAR FILTRATION RATE 40.6 (>32); POTASSIUM SERUM 3.8 MEQ/L (3.5-5.1)
[2019-06-16] MEDS: GEMFIBROZIL 600 MG TAB PO SCH ×2 (08:45→21:12)
[2019-06-16] MEDS: FOLIC ACID 1 MG TAB PO SCH (08:45)
[2019-06-16] MEDS: CALCITRIOL 0.25 MCG CAP (S0169) PO SCH (08:45)
[2019-06-16] MEDS: POLYVINYL ALCOHOL OPHTH SOLN 15 ML(LIQUITEARS) OU SCH (08:46)
[2019-06-16] MEDS: LOSARTAN 25 MG TAB PO SCH (08:46)
[2019-06-16] MEDS: SERTRALINE HCL 50 MG TAB PO SCH (08:46)
[2019-06-16] MEDS: POTASSIUM CHLORIDE 10 MEQ SR TABLET PO SCH (08:46)
[2019-06-16] MEDS: EZETIMIBE 10 MG TAB (ZETIA) PO SCH (08:46)
[2019-06-16] MEDS: NYSTATIN 100,000 UNITS/GM TOPICAL PWD 15 GM TOP SCH (08:46)
[2019-06-16 14:23] VITALS: BP 162/82
--- NOTE | 2019-06-16 18:57 | IPNPDOC ---
Date Seen The patient was seen on 06/16/19. Progress Note SUBJECTIVE: Cristy was seen and examined this morning while lying in bed. Her NG tube remains clamped and she is tolerating well her clear liquids diet. She reports feeling better and does not endorse any pain at this time. She had her first bowel movement overnight since being admitted. She denies fever, chills, chest pain, chest pressure, palpitations, shortness of breath, abdominal pain, feeling nauseated, or vomiting at this time. OBJECTIVE PHYSICAL EXAMINATION: VITAL SIGNS: Please see below. GENERAL: Cristy is an elderly appearing woman. She is awake, alert and oriented 3. She responds to questions and commands appropriately. She is pleasant and cooperative. She does not appear to be in any acute distress at this time. HEENT: Normocephalic, atraumatic. Anicteric sclera. Noninjected conjunctiva. No palpable cervical or supraclavicular lymphadenopathy. Trachea is midline. Neck is supple. Nasogastric tube is in place through left nare, but is clamped. CARDIOVASCULAR: 2/6 systolic murmur most prominent over the left parasternal border. Regular rate and rhythm. No rubs or gallops appreciated. No visible JVD. 2+ radial and posterior tibial pulses palpated bilaterally RESPIRATORY: Mildly diminished tidal volume. No wheezes or rhonchi appreciated on auscultation. Symmetric chest expansion. No retractions or accessory muscle visualized on respiration. No cough elicited during exam. ABDOMINAL: Vertical midline abdominal scar superior to umbilicus. There is no tenderness to palpation in all abdominal quadrants. Normoactive bowel sounds. Left lower quadrant fullness to palpation. His somewhat diminished from previous days. No tympany to percussion throughout abdomen. No hepatomegaly appreciated on palpation. MUSCULOSKELETAL: 5 out of 5 muscle strength testing upper extremity and lower extremity bilaterally. BACK: There appear to be 2 areas of raised skin over the patient's left back. The first is located along the medial border of the scapula, with the second over the lower costovertebral angles. Both appear approximately 4-5 cm in width. They seem to be lipoma-appearing. On inspection, they are fluctuant and there is no erythema, tenderness to palpation, or induration. EXTREMITIES: No clubbing or cyanosis. No lower extremity edema. NEUROLOGICAL: Sensation to light touch intact upper extremity and lower showing bilaterally. Patient is awake, alert and oriented 3. She responds appropriate to questions commands. PSYCHOLOGICAL: Subdued mood, appropriate affect. LABORATORY DATA, IMAGING STUDIES, MICROBIOLOGY: Please see below. ASSESSMENT AND PLAN: This is an 84-year-old female who presented to the [facility] ED on 06/12 from [facility] with a chief complaint of right-sided abdominal pain that was "severe." Pain came on the afternoon of 06/11 after patient ate lunch. She had associated nausea and dry heaves with no fever or chills. Her last bowel movement was 06/09. The last time she had flatus was 06/12. CT imaging showed a partial small bowel obstruction likely secondary to adhesions from previous abdominal surgical procedures. Patient was started on IV fluids, given NG tube suction for decompression and follow-up serial KUB imaging was ordered. General surgery was contacted and is following patient. KUB from 06/13 showed unre markable bowel gas pattern with no distention of small or large bowel. There were normal air and stool levels visualized within the intestines. Patient continued to have right upper abdominal pain until 06/15, when she said it had all but resolved. Repeat KUB imaging on 06/15 showed a normal gas pattern with no small or large bowel dilation. Patient's NG tube was clamped and she was started on a clear liquid diet on 06/15. She tolerated the clear liquid diet well and was in no abdominal pain, so on 06/16. The NG tube was removed and she began to advance her diet as tolerated. She also had her first bowel movement since admission on the overnight. #Partial small bowel obstruction on CT imaging -SBO likely secondary to adhesions from previous abdominal surgeries. Original CT imaging was performed at [facility]. -KUB flat plate imaging yesterday had normal gas pattern with no dilation of small or large bowel. There was no significant interval change from KUB on 06/13. -Patient tolerated clear liquid diet and had no abdominal pain. The NG tube was removed and her diet was advanced as tolerable. She also had her first bowel movement since admission overnight. -Order was placed to discontinue IV fluids when patient begins tolerating po intake. -Patient is also being followed by general surgery and we greatly appreciate their consult. #Hyperchloremia -Chloride value this morning was mildly elevated at 112. This is slightly diminished from yesterday. -Patient was switched to LR's due to elevated chloride. LR's yesterday were decreased to 50 miles per hour to potentially help with patient's elevated blood pressure. -Continue to monitor on repeat metabolic profiles #Chronic kidney disease, stage IIIB -LR fluids were switched to a rate of 50 mL's per hour yesterday to hopefully help with patient's elevated blood pressure. IV fluids were ordered to be discontinued once patient begins tolerating po intake. -GFR remains in the low 40s for the second consecutive day. -Creatinine remains elevated. Unsure of patient's baseline creatinine as this is her only recorded visit in the medical record system. -Continue to monitor and repeat labs. #Essential hypertension -Continue with patient's home losartan and diltiazem -Patient's blood pressure was in the high 170s systolic just before her morning losartan and diltiazem were administered. -Patient remains asymptomatic, with no headaches or pain. We will continue to monitor vitals and assess if further treatment is warranted beyond current antihypertensive regimen. #Normocytic anemia -Hemoglobin has been decreased throughout inpatient stay, holding steady around 10. MCV continues to remain within normal range. -Possibly secondary to chronic kidney disease/anemia of chronic disease. -Continue with patient's home folic acid dosing -Continue to monitor and repeat CBC measurements #Elevated alkaline phosphatase -Mildly elevated on 06/14 at 124. Patient is no longer npo and is advancing diet as tolerated. She has a history of multiple abdominal surgeries in the past, with likely adhesions leading to recurrent partial small bowel obstruction. -Continue to follow and repeat labs. #Hypocalcemia -Remains slightly depressed this morning -Continue with home calcitriol -Continue to monitor on subsequent labs. #History of hypothyroidism -Continue with patient's levothyroxine #History of hyperlipidemia Continue with home ezetimibe and gemfibrozil medication #History of depression/anxiety -Continue with patient's home mirtazapine and sertraline medication #History of diverticulosis #History of multiple abdominal surgeries #History of surgery for brain aneurysm DVT prophylaxis: TEDs and sequentials ordered. DISPOSITION: Patient had her first bowel movement overnight and tolerated well a clear liquid diet. Her NG tube was clamped yesterday, and she complains of no abdominal pain overnight or this morning. NG tube was removed today. The patient's diet was to be advanced as tolerated. We will assess how patient does, while advancing diet and with NG tube out. We'll continue to collaborate with general surgery as to the next steps in patient's care. I saw and evaluated the patient. I agree with the findings and plan of care as documented in the above note VS, I&O, 24H, Fishbone Vital Signs/I&O Vital Signs Date Time Temp Pulse Resp B/P (MAP) Pulse Ox O2 Delivery O2 Flow Rate FiO2 06/16/19 14:23 98.9 59 16 162/82 (108) 99 I&O- Last 24 Hours up to 6 AM 06/16/19 06:00 Intake Total 1270 ml Output Total 1950 ml Balance -680 ml Laboratory Data 24H LABS Laboratory Tests 2 06/16/19 05:45: Nucleated Red Blood Cells % (auto) 0.0, Anion Gap 8, Glomerular Filtration Rate 40.6, Blood Urea Nitrogen 23H, Creatinine 1.32H, Sodium Level 142, Potassium Level 3.8, Chloride Level 112H, Carbon Dioxide Level 22, Calcium Level 8.5L CBC/BMP Laboratory Tests 06/16/19 05:45 Red Blood Count 3.22 L, Mean Corpuscular Volume 90.4, Mean Corpuscular Hemoglobin 31.4, Mean Corpuscular Hemoglobin Concent 34.7, Red Cell Distribution Width 12.6, Calcium Level 8.5 L [facility] PGY-1 Jun 16, 2019 18:57 ELIZABETH CABA MD Jun 18, 2019 11:42
[2019-06-16] MEDS: MIRTAZAPINE 7.5MG PER 1/2 TABLET PO SCH (21:12)
[2019-06-16 22:00] VITALS: BP 163/82
[2019-06-17] MEDS: LEVOTHYROXINE 50MCG TABLET (0.05MG) PO SCH (05:52)
[2019-06-17 06:00] VITALS: BP 162/82
[2019-06-17 07:05] LABS: HEMATOCRIT 32.7 % (36.0-47.0); HEMOGLOBIN 11.1 g/dl (12.0-15.5); MEAN CORPUSCULAR HEMOGLOBIN 30.8 pg (27.0-33.0); MEAN CORPUSCULAR HGB CONC 33.9 g/dl (32.0-36.5); MEAN CORPUSCULAR VOLUME 90.8 fl (80.0-96.0); PLATELET COUNT, AUTOMATED 235 10^3/uL (150-450); WHITE BLOOD COUNT 5.4 10^3/uL (4.0-10.0)
[2019-06-17 07:21] LABS: CALCIUM LEVEL 8.6 MG/DL (8.8-10.2); CREATININE FOR GFR 1.45 MG/DL (0.55-1.30); GLOMERULAR FILTRATION RATE 36.4 (>32)
[2019-06-17] MEDS: GEMFIBROZIL 600 MG TAB PO SCH (08:50)
[2019-06-17] MEDS: NYSTATIN 100,000 UNITS/GM TOPICAL PWD 15 GM TOP SCH (08:50)
[2019-06-17] MEDS: SERTRALINE HCL 50 MG TAB PO SCH (08:50)
[2019-06-17] MEDS: CALCITRIOL 0.25 MCG CAP (S0169) PO SCH (08:50)
[2019-06-17] MEDS: POLYVINYL ALCOHOL OPHTH SOLN 15 ML(LIQUITEARS) OU SCH (08:50)
[2019-06-17] MEDS: FOLIC ACID 1 MG TAB PO SCH (08:50)
[2019-06-17 08:51] VITALS: BP 162/82
[2019-06-17] MEDS: EZETIMIBE 10 MG TAB (ZETIA) PO SCH (08:51)
[2019-06-17] MEDS: POTASSIUM CHLORIDE 10 MEQ SR TABLET PO SCH (08:51)
[2019-06-17] MEDS: LOSARTAN 25 MG TAB PO SCH (08:51)
[2019-06-17 14:00] VITALS: BP 142/84
--- NOTE | 2019-06-17 18:48 | DS.PDOC ---
Discharge Summary General Date of Admission Jun 13, 2019 at 03:00 Date of Discharge 06/17/2019 Attending Physician: ELIZABETH CABA MD Specialist/Consultants Involve: Wan Haynes Discharge Summary PROCEDURES PERFORMED DURING STAY: None ADMITTING DIAGNOSES: Partial small bowel obstruction DISCHARGE DIAGNOSES: Partial small bowel obstruction Hyperchloremia. Chronic kidney disease, stage IIIB Essential hypertension Normocytic anemia Hypocalcemia Elevated alkaline phosphatase History of hyperlipidemia History of depression/anxiety History of diverticulosis History of multiple abdominal surgeries History of brain aneurysm status post surgery COMPLICATIONS/CHIEF COMPLAINT: Bowel Obstruction. HISTORY OF PRESENT ILLNESS & HOSPITAL COURSE: Cristy is an 84-year-old female who presented to the [facility] ED on 06/12 from [facility] with a chief complaint of right-sided abdominal pain that was "severe." Pain came on during the afternoon of 06/11 after patient ate lunch. She had associated nausea and dry heaves with no fever or chills. Her last bowel movement was 06/09. The last time she had flatus was 06/12. CT imaging showed a partial small bowel obstruction likely secondary to adhesions from previous abdominal surgical procedures. Patient was started on IV fluids, given NG tube suction for decompression and follow-up serial KUB imaging was ordered. General surgery was contacted and followed the patient through inpatient stay. KUB from 06/13 showed unremarkable bowel gas pattern with no distention of small or large bowel. There were normal air and stool levels visualized within the intestines. Patient continued to have right upper abdominal pain until 06/15, when she said it had all but resolved. Repeat KUB imaging on 06/15 showed a normal gas pattern with no small or large bowel dilation. From admission on 06/13 through 06/15, amount of fluid suctioned off by NG tube continued to decrease daily. Patient's NG tube was clamped and she was started on a clear liquid diet on 06/15. She tolerated the clear liquid diet well and was in no abdominal pain, so on 06/16, the NG tube was removed and she began to advance her diet as tolerated. She also had her first bowel movement since admission on the overnight. Patient tolerated advanced diet well, continued to have bowel movements over the last 2+ days of admission, and did not complain of any abdominal pain or pain in general. On 06/17, hospitalist team spoke with general surgery and patient was deemed okay for discharge home. DISCHARGE MEDICATIONS: Please see below. ALLERGIES: Please see below. PHYSICAL EXAMINATION ON DISCHARGE: VITAL SIGNS: Please see below. GENERAL: Cristy is an elderly appearing woman. She is awake, alert and oriented 3. She responds to questions and commands appropriately. She is pleasant and cooperative. She does not appear to be in any acute distress at this time. HEENT: Normocephalic, atraumatic. Anicteric sclera. Noninjected conjunctiva. No palpable cervical or supraclavicular lymphadenopathy. Trachea is midline. Neck is supple. Nasogastric tube is in place through left nare, but is clamped. CARDIOVASCULAR: 2/6 systolic murmur most prominent over the left parasternal border. Regular rate and rhythm. No rubs or gallops appreciated. No visible JVD. 2+ radial and posterior tibial pulses palpated bilaterally RESPIRATORY: Mildly diminished tidal volume. No wheezes or rhonchi appreciated on auscultation. Symmetric chest expansion. No retractions or accessory muscle visualized on respiration. No cough elicited during exam. ABDOMINAL: Vertical midline abdominal scar superior to umbilicus. There is no tenderness to palpation in all abdominal quadrants. Normoactive bowel sounds. Left lower quadrant fullness to palpation. His somewhat diminished from previous days. No tympany to percussion throughout abdomen. No hepatomegaly appreciated on palpation. MUSCULOSKELETAL: 5 out of 5 muscle strength testing upper extremity and lower extremity bilaterally. BACK: There appear to be 2 areas of raised skin over the patient's left back. The first is located along the medial border of the scapula, with the second over the lower costovertebral angles. Both appear approximately 4-5 cm in width. They seem to be lipoma-appearing. On inspection, they are fluctuant and there is no erythema, tenderness to palpation, or induration. EXTREMITIES: No clubbing or cyanosis. No lower extremity edema. NEUROLOGICAL: Sensation to light touch intact upper extremity and lower showing bilaterally. Patient is awake, alert and oriented 3. She responds appropriate to questions commands. PSYCHOLOGICAL: Appropriate mood, appropriate affect. LABORATORY DATA: Please see below. IMAGIN06/13/19, abdomen x-ray Unremarkable bowel gas pattern. No large or small bowel dilation is seen. Nasogastric tube in the upper stomach. 06/15/19, abdomen x-ray Normal bowel gas pattern. A nasogastric tube is again seen in the gastric fundus. No large or small bowel dilation is observed. PROGNOSIS: Good ACTIVITY: As tolerated DIET: As tolerated DISPOSITION: 01 Home, Self-Care. DISCHARGE INSTRUCTIONS & ITEMS TO FOLLOWUP ON ON OUTPATIENT: -Patient is to follow-up with primary care physician in the next 7-10 days -If symptoms which necessitated this hospital admission should return and/or worsen, or patient should experience a medical emergency any kind. Patient is instructed to return to the emergency department immediately. DISCHARGE CONDITION: Stable I saw and evaluated the patient. I agree with the findings and plan of care as documented in the documenters note. I spent 45 minutes coordinating this patient's discharge. Vital Signs/I&Os Vital Signs Date Time Temp Pulse Resp B/P (MAP) Pulse Ox O2 Delivery O2 Flow Rate FiO2 06/17/19 14:00 98.5 67 20 142/84 (103) 96 I&O- Last 24 Hours up to 6 AM 06/17/19 05:59 Intake Total 960 ml Output Total 1100 ml Balance -140 ml Laboratory Data Labs 24H Laboratory Tests 2 06/17/19 06:49: Nucleated Red Blood Cells % (auto) 0.0, Anion Gap 8, Glomerular Filtration Rate 36.4, Blood Urea Nitrogen 19H, Creatinine 1.45H, Sodium Level 140, Potassium L evel 4.0, Chloride Level 110H, Carbon Dioxide Level 22, Calcium Level 8.6L CBC/BMP Laboratory Tests 06/17/19 06:49 Red Blood Count 3.60 L, Mean Corpuscular Volume 90.8, Mean Corpuscular Hemoglobin 30.8, Mean Corpuscular Hemoglobin Concent 33.9, Red Cell Distribution Width 12.7, Calcium Level 8.6 L Discharge Medications Scheduled Calcitriol (Calcitriol) 0.25 Mcg Capsule, 0.25 MCG PO DAILY, (Reported) Diltiazem HCl (Cartia Xt) 120 Mg Cap.er.24h, 120 MG PO DAILY, (Reported) Ezetimibe (Ezetimibe) 10 Mg Tablet, 10 MG PO DAILY, (Reported) Ferrous Sulfate (Ferrous Sulfate) 325 Mg Tablet, 325 MG PO DAILY, (Reported) Folic Acid (Folic Acid) 1 Mg Tablet, 1 MG PO DAILY, (Reported) Gemfibrozil (Gemfibrozil) 600 Mg Tablet, 600 MG PO BID, (Reported) Levothyroxine Sodium (Synthroid) 50 Mcg Tablet, 50 MCG PO DAILY, (Reported) Losartan Potassium (Losartan Potassium) 25 Mg Tablet, 25 MG PO DAILY, (Reported) Melatonin (Melatonin) 5 Mg Tablet, 5 MG PO QHS, (Reported) Mirtazapine (Remeron) 15 Mg Tablet, 7.5 MG PO QHS, (Reported) Nystatin (Nystatin Powder) 15 Gm Powder, 1 DOSE TOP DAILY, (Reported) UNDER BREASTS AND STOMACH FOLDS Polyvinyl Alcohol (Akwa Tears) 15 Ml Drops, 2 DROP OU DAILY, (Reported) Potassium Chloride (Potassium Chloride) 10 Meq Capsule.er, 10 MEQ PO DAILY, (Reported) Sertraline HCl (Sertraline HCl) 50 Mg Tablet, 50 MG PO DAILY, (Reported) Vit A/Vit C/Vit E/Zinc/Copper (Icaps Areds Formula Dr Tablet) 1 Each Tablet.dr, 1 TAB PO DAILY, (Reported) Allergies Coded Allergies: acetaminophen (Verified Allergy, Intermediate, rash, 06/13/19) diphenhydramine (Verified Allergy, Intermediate, rash, 06/13/19) metronidazole (Verified Allergy, Intermediate, rash, 06/13/19) NSAIDS (Non-Steroidal Anti-Inflamma (Verified Allergy, Unknown, 06/13/19) Penicillins (Verified Allergy, Unknown, 06/13/19) erythromycin base (Verified Allergy, Unknown, 06/13/19) [facility] PGY-1 Jun 17, 2019 18:48 ELIZABETH CABA MD Jun 18, 2019 12:00
== END 2019-06-17 14:35 | disposition home health service (06) | DRG 390 ==
LOC: M MS5PR 03:00
PROVIDERS: ADMIT Internal Medicine; ATTEND Internal Medicine
DX: K56.51 Intestinal adhesions [bands], with partial obstruction (principal); I12.9 Hypertensive chronic kidney disease with stage 1 through stage 4 chronic kidney disease, or unspecified chronic kidney disease; K57.90 Diverticulosis of intestine, part unspecified, without perforation or abscess without bleeding; N18.3 Chronic kidney disease, stage 3 (moderate); E03.9 Hypothyroidism, unspecified; E87.8 Other disorders of electrolyte and fluid balance, not elsewhere classified; D63.1 Anemia in chronic kidney disease; E78.5 Hyperlipidemia, unspecified; E83.51 Hypocalcemia; F32.9 Major depressive disorder, single episode, unspecified; R74.8 Abnormal levels of other serum enzymes; Z79.899 Other long term (current) drug therapy; Z88.0 Allergy status to penicillin; Z88.1 Allergy status to other antibiotic agents; Z88.6 Allergy status to analgesic agent; Z88.8 Allergy status to other drugs, medicaments and biological substances

== ENCOUNTER 2020-06-23 23:41 | Emergency (ER) | payer MEDICARE, OTHER ==
[~2020-06-23] VITALS: Ht 154.9 cm; Wt 60.0 kg
[~2020-06-23 23:41] MED LIST: AKWASOL OU; CALC1CAP31 PO; CART120C PO; EZET10TA21 PO; FERR1TAB8 PO; FOLI1TAB11 PO; GEMF600T5 PO; ICAPTAB PO; LOSA25TA14 PO; MELA1TAB9 PO; NYST1POW9 TOP; POTA10CA32 PO; REME15TA PO; SERT50TA29 PO; SYNT50TA PO
[2020-06-24] MEDS ORDERED: ISOVUE-370 76% 100ML VIAL As Ordered ONE (00:46)
[2020-06-24 00:59] LABS: BASO # 0.1 10^3/uL (0.0-0.2); BASO % 0.8 % (0.0-1.0); EOS # 0.1 10^3/uL (0.0-0.5); EOS % 1.9 % (0.0-3.0); HEMATOCRIT 30.6 % (36.0-47.0); HEMOGLOBIN 9.8 g/dl (12.0-15.5); LYMPH # 1.6 10^3/uL (1.5-5.0); LYMPH % 25.3 % (24.0-44.0); MEAN CORPUSCULAR HEMOGLOBIN 30.4 pg (27.0-33.0); MONO # 0.7 10^3/uL (0.0-0.8); MONO % 10.9 % (0.0-5.0); NEUTROPHILS # 3.7 10^3/uL (1.5-8.5); NEUTROPHILS % 60.6 % (36.0-66.0); PLATELET COUNT, AUTOMATED 265 10^3/uL (150-450); RED BLOOD COUNT 3.22 10^6/uL (4.00-5.40); WHITE BLOOD COUNT 6.2 10^3/uL (4.0-10.0)
[2020-06-24 01:16] LABS: INR 1.07; PROTHROMBIN TIME 14.1 SECONDS (12.5-14.3)
[2020-06-24 01:27] LABS: ALBUMIN 3.7 GM/DL (3.2-5.2); ALT/SGPT 11 U/L (12-78); BILIRUBIN,DIRECT < 0.1 MG/DL (0.0-0.2); BILIRUBIN,TOTAL 0.2 MG/DL (0.2-1.0); BLOOD UREA NITROGEN 40 MG/DL (7-18); CALCIUM LEVEL 8.7 MG/DL (8.8-10.2); CARBON DIOXIDE LEVEL 20 MEQ/L (21-32); CHLORIDE LEVEL 111 MEQ/L (98-107); CREATININE FOR GFR 1.58 MG/DL (0.55-1.30); ETHYL ALCOHOL (ETHANOL) 0.022 % (0.000-0.010); GLOMERULAR FILTRATION RATE 32.9 (>32); GLUCOSE, FASTING 95 MG/DL (70-100); POTASSIUM SERUM 4.2 MEQ/L (3.5-5.1); SODIUM LEVEL 139 MEQ/L (136-145); TOTAL PROTEIN 6.9 GM/DL (6.4-8.2)
--- NOTE | 2020-06-24 03:08 | REPVR ---
PROCEDURE INFORMATION: Exam: CT Head Without Contrast Exam date and time: 06/24/2020 2:15 AM Age: 85 years old Clinical indication: Injury or trauma; Fall; Blunt trauma (contusions or hematomas) TECHNIQUE: Imaging protocol: Computed tomography of the head without contrast. Radiation optimization: All CT scans at this facility use at least one of these dose optimization techniques: automated exposure control; mA and/or kV adjustment per patient size (includes targeted exams where dose is matched to clinical indication); or iterative reconstruction. COMPARISON: No relevant prior studies available. FINDINGS: Brain: Lobular extra-axial partially calcified nodule adjacent to the anterior falx and medial to the left frontal lobe consistent with meningioma measuring 16 x 12 x 20 mm. Bifrontal encephalomalacia. There is mild patchy low attenuation of deep white matter. There is slight prominence of the peripheral sulci. Cerebral ventricles: There is mild prominence of the central ventricular system. Bones/joints: Large bifrontal craniectomy. Paranasal sinuses: Visualized sinuses are unremarkable. No fluid levels. Mastoid air cells: Visualized mastoid air cells are well aerated. Soft tissues: Left lateral cheek subcutaneous edema and subcutaneous hematoma caudal and lateral to the left zygomatic arch. IMPRESSION: 1. Bifrontal craniectomy with symmetric bifrontal encephalomalacia. 2. Mild chronic ischemic white matter change and atrophy. 3. Left frontal paramedian meningioma. 4. Left lateral cheek subcutaneous edema and subcutaneous hematoma caudal and lateral to the left zygomatic arch. 5. Otherwise negative noncontrast head CT. Electronically signed by: Vitor Mac On 06/24/2020 03:08:00 AM
--- NOTE | 2020-06-24 03:11 | REPVR ---
PROCEDURE INFORMATION: Exam: CT Maxillofacial Without Contrast Exam date and time: 06/24/2020 2:15 AM Age: 85 years old Clinical indication: Injury or trauma; Fall; Blunt trauma (contusions or hematomas); Cheek bone; Left TECHNIQUE: Imaging protocol: Computed tomography images of the face without contrast. Radiation optimization: All CT scans at this facility use at least one of these dose optimization techniques: automated exposure control; mA and/or kV adjustment per patient size (includes targeted exams where dose is matched to clinical indication); or iterative reconstruction. COMPARISON: No relevant prior studies available. FINDINGS: Orbital cavity: Orbits are normal. Globes are unremarkable. Bones/joints: Large bifrontal craniotomy site. Moderate degenerative remodeling of the TMJs. No acute fractures. Paranasal sinuses: Normal. No air-fluid levels. Soft tissues: Subcutaneous edema with subcutaneous hematoma lateral to the mandibular ramus in the lateral left face. Brain: Bifrontal encephalomalacia. IMPRESSION: 1. Subcutaneous edema and subcutaneous hematoma lateral to the left mandibular ramus. 2. Degenerative changes of the TMJs. 3. Bifrontal craniotomy with underlying bifrontal encephalomalacia. 4. Otherwise negative CT facial bones. No acute fracture. Electronically signed by: Vitor Mac On 06/24/2020 03:11:01 AM
--- NOTE | 2020-06-24 03:15 | REPVR ---
PROCEDURE INFORMATION: Exam: CT Cervical Spine Without Contrast Exam date and time: 06/24/2020 2:15 AM Age: 85 years old Clinical indication: Injury or trauma; Fall; Blunt trauma TECHNIQUE: Imaging protocol: Computed tomography images of the cervical spine without contrast. Radiation optimization: All CT scans at this facility use at least one of these dose optimization techniques: automated exposure control; mA and/or kV adjustment per patient size (includes targeted exams where dose is matched to clinical indication); or iterative reconstruction. COMPARISON: No relevant prior studies available. FINDINGS: Vertebrae: The degenerative remodeling between the odontoid and anterior arch of C1. No vertebral fractures. C2-C3: Minimal posterior central protrusion of the disc and minimal degenerative changes of apophyseal joints, left greater than right with no spinal or foraminal stenosis. C3-C4: Minimal posterior central protrusion of the disc with degenerative changes, greatest in the right apophyseal joint with no significant spinal or foraminal stenosis. C4-C5: Slight interspace narrowing with slight retrolisthesis and bilateral degenerative changes with no spinal or foraminal stenosis. C5-C6: Slight retrolisthesis with slight interspace narrowing and bilateral degenerative changes, greatest in the right uncovertebral joint with mild right neural foraminal stenosis. C6-C7: Mild interspace narrowing with vacuum phenomena and bilateral degenerative changes with no significant spinal or foraminal stenosis. C7-T1: Mild anterolisthesis with degenerative change of apophyseal joints with no spinal or foraminal stenosis. Soft tissues: Unremarkable. Lungs: Lung apices are normal. IMPRESSION: 1. Multilevel degenerative changes with no significant spinal stenosis. There is mild right neural foraminal stenosis at C5-C6. No additional foraminal stenosis. 2. No acute fracture or subluxation. Electronically signed by: Vitor Mac On 06/24/2020 03:15:23 AM
--- NOTE | 2020-06-24 03:28 | REPVR ---
PROCEDURE INFORMATION: Exam: CT Chest With Contrast Exam date and time: 06/24/2020 2:15 AM Age: 85 years old Clinical indication: Injury or trauma; Fall; Blunt trauma (contusions or hematomas) TECHNIQUE: Imaging protocol: Computed tomography of the chest with intravenous contrast. Radiation optimization: All CT scans at this facility use at least one of these dose optimization techniques: automated exposure control; mA and/or kV adjustment per patient size (includes targeted exams where dose is matched to clinical indication); or iterative reconstruction. Contrast material: ISO 370; Contrast volume: 100 ml; Contrast route: INTRAVENOUS (IV); COMPARISON: No relevant prior studies available. FINDINGS: Lungs: Unremarkable. No consolidation. No masses. Pleural space: Unremarkable. No pneumothorax. No pleural effusion. Heart: The left atrium measures 5.2 cm in its AP dimension. Pulmonary arteries: The main pulmonary artery measures 26 mm. Aorta: The ascending thoracic aorta measures 35 mm. Lymph nodes: Unremarkable. No enlarged lymph nodes. 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 Moderate wedge configuration of T3 which appears to be chronic. Healing fractures of the right 10th rib laterally and the right 11th rib posterolaterally. Soft tissues: Unremarkable. IMPRESSION: 1. 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 2. Moderate wedge compression of T3 which appears to be chronic and healing fractures of the right 10th and 11th ribs laterally or posterolaterally. 3. Mild cardiomegaly. 4. Otherwise negative CT chest. No acute posttraumatic change is seen. Electronically signed by: Vitor Mac On 06/24/2020 03:27:46 AM
--- NOTE | 2020-06-24 03:35 | REPVR ---
PROCEDURE INFORMATION: Exam: CT Abdomen And Pelvis With Contrast Exam date and time: 06/24/2020 2:15 AM Age: 85 years old Clinical indication: Injury or trauma; Fall; Blunt; Generalized TECHNIQUE: Imaging protocol: Computed tomography of the abdomen and pelvis with intravenous contrast. Radiation optimization: All CT scans at this facility use at least one of these dose optimization techniques: automated exposure control; mA and/or kV adjustment per patient size (includes targeted exams where dose is matched to clinical indication); or iterative reconstruction. Contrast material: ISO 370; Contrast volume: 100 ml; Contrast route: INTRAVENOUS (IV); COMPARISON: No relevant prior studies available. FINDINGS: Lungs: Minimal bibasilar fibro-atelectatic change. Liver: The liver attenuation is 90 Hounsfield units and the spleen is 141 Hounsfield units. The liver and spleen are intact. No perihepatic or perisplenic fluid collections are identified. Gallbladder and bile ducts: Normal. No calcified stones. No ductal dilation. Pancreas: Normal. No ductal dilation. Spleen: Normal. No splenomegaly. Adrenals: Slight fullness of the left adrenal which may reflect hyperplasia. Kidneys and ureters: There is a right renal cyst measuring 5 mm which is difficult to characterize due to small size. No follow-up imaging is recommended. Stomach and bowel: Slight colonic wall thickening of the ascending and transverse colon. There is colonic diverticulosis without evidence of diverticulitis. Mild stool throughout much of the colon. Appendix: A normal appendix is seen. Intraperitoneal space: Unremarkable. No free air. No significant fluid collection. Vasculature: Unremarkable. No abdominal aortic aneurysm. Lymph nodes: Unremarkable. No enlarged lymph nodes. Urinary bladder: Unremarkable as visualized. Reproductive: Unremarkable as visualized. Bones/joints: Healing fractures of the right 10th and 11th ribs. Mild levoscoliosis centered at L2. There is axial rotation at L2-L3 with prominent posterior subluxation of the left inferior articular facet of L2 relative to the superior articular facet of L3. No acute fracture. Soft tissues: Unremarkable. IMPRESSION: 1. Healing fractures of the right 10th and 11th ribs. 2. Mild levoscoliosis centered at L2 with axial rotation at L2-L3 and posterior subluxation of the left inferior articular facet of L2 relative to the superior articular facet of L3. 3. Fatty infiltration of the liver. 4. Minimal nonspecific right colitis involving the ascending and transverse colon. 5. Colonic diverticulosis without diverticulitis. 6. Otherwise negative CT abdomen/pelvis. No acute posttraumatic change is seen. COMMENTS: Consistent with the [employer]'s Incidental Findings Committee white paper (J Am Dayna Radiol 2018): Any incidental renal lesion less than 1.0 cm or classified as too small to characterize, or any incidental cystic renal lesion characterized as simple-appearing, is likely benign. No follow-up imaging is recommended for these lesions per consensus recommendations based on imaging criteria. Electronically signed by: Vitor Mac On 06/24/2020 03:35:31 AM
--- NOTE | 2020-06-24 03:39 | REPVR ---
PROCEDURE INFORMATION: Exam: CT Lumbar Spine Without Contrast Exam date and time: 06/24/2020 2:15 AM Age: 85 years old Clinical indication: Injury or trauma; Fall; Blunt trauma (contusions or hematomas) TECHNIQUE: Imaging protocol: Computed tomography images of the lumbar spine without contrast. Radiation optimization: All CT scans at this facility use at least one of these dose optimization techniques: automated exposure control; mA and/or kV adjustment per patient size (includes targeted exams where dose is matched to clinical indication); or iterative reconstruction. COMPARISON: No relevant prior studies available. FINDINGS: Vertebrae: The lumbar vertebral bodies are intact. Mild levoscoliosis centered at L2. There is axial rotation at L2-L3 with posterior subluxation of the left inferior articular facet of L2 relative to the superior articular facet of L3 which may be chronic. No acute fracture. L1-L2: Moderate interspace narrowing with vacuum phenomenon and minimal diffuse bulge with near loss of posterior concavity. There is minimal facet arthropathy with no significant spinal or foraminal stenosis. L2-L3: Prominent interspace narrowing with some endplate sclerosis toward the right aspect. There is axial rotation with subluxation of the left articular facet and mild degenerative change of the right. No significant spinal or foraminal stenosis. L3-L4: Slight interspace narrowing with degenerative vacuum phenomena and minimal diffuse bulge of the disc with loss of posterior concavity. There is mild left facet arthropathy and slight widening of the right facet with no significant spinal or foraminal stenosis. L4-L5: Minimal right and moderate left facet arthropathy with no significant spinal or foraminal stenosis. L5-S1: The disc is adequately well maintained with mild bilateral facet arthropathy and no significant spinal or foraminal stenosis. Soft tissues: Unremarkable. IMPRESSION: 1. Mild levoscoliosis centered at L2 with axial rotation at L2-L3 with posterior subluxation of the left inferior articular facet of L2 relative to the superior articular facet of L3 which may be chronic. 2. Multilevel degenerative changes with no significant spinal or foraminal stenosis. 3. No acute fracture or compression is seen. Electronically signed by: Vitor Mac On 06/24/2020 03:39:39 AM
--- NOTE | 2020-06-24 03:42 | REPVR ---
PROCEDURE INFORMATION: Exam: CT Thoracic Spine Without Contrast Exam date and time: 06/24/2020 2:15 AM Age: 85 years old Clinical indication: Injury or trauma; Fall; Blunt trauma (contusions or hematomas) TECHNIQUE: Imaging protocol: Computed tomography images of the thoracic spine without contrast. Radiation optimization: All CT scans at this facility use at least one of these dose optimization techniques: automated exposure control; mA and/or kV adjustment per patient size (includes targeted exams where dose is matched to clinical indication); or iterative reconstruction. COMPARISON: No relevant prior studies available. FINDINGS: Vertebrae: Moderate wedge compression of T3 which appears to be chronic. No acute fracture or compression. Discs/Spinal canal/Neural foramina: Minimal degenerative changes are noted in several facets with no significant spinal or foraminal stenosis. Soft tissues: Unremarkable. IMPRESSION: 1. Moderate wedge compression of T3 which appears to be chronic. 2. Minimal degenerative changes at several facet joints with no spinal or foraminal stenosis. 3. Otherwise negative CT thoracic spine. No acute fracture or subluxation. Electronically signed by: Vitor Mac On 06/24/2020 03:42:17 AM
[2020-06-24 09:26] VITALS: BP 130/63
[2020-06-24 15:24] LABS: AMPHETAMINES LEVEL URINE NEGATIVE (NEGATIVE); BARBITURATES URINE NEGATIVE (NEGATIVE); BENZODIAZEPINES URINE NEGATIVE (NEGATIVE); CANNABINOIDS URINE NEGATIVE (NEGATIVE); COCAINE METABOLITE URINE NEGATIVE (NEGATIVE); METHADONE URINE NEGATIVE (NEGATIVE); OPIATES URINE NEGATIVE (NEGATIVE); PHENCYCLIDINE URINE NEGATIVE (NEGATIVE)
== END 2020-06-24 13:04 | disposition home or self-care (01) ==
LOC: M ED 23:41
DX: S00.83XA Contusion of other part of head, initial encounter (principal); F10.120 Alcohol abuse with intoxication, uncomplicated; W18.39XA Other fall on same level, initial encounter; Y92.410 Unspecified street and highway as the place of occurrence of the external cause; Y93.89 Activity, other specified; Y99.8 Other external cause status; E03.9 Hypothyroidism, unspecified; K21.9 Gastro-esophageal reflux disease without esophagitis; E78.5 Hyperlipidemia, unspecified; F41.9 Anxiety disorder, unspecified; F32.9 Major depressive disorder, single episode, unspecified; Z88.0 Allergy status to penicillin; Z88.6 Allergy status to analgesic agent; Z88.8 Allergy status to other drugs, medicaments and biological substances; Z88.1 Allergy status to other antibiotic agents
CPT/HCPCS: 70450; 70486; 71260; 72125; 72128; 72131; 74177; 80048; 80076; 80307; 81001; 83605; 85025; 85610; 85730; 86850; 86900; 86901; 93041; 94760; 99285; G0480; Q9967